=== PATIENT | female | born 1990 | race Asian ===

== ENCOUNTER 2016-07-13 22:33 | Emergency (ER) | payer SELFPAY ==
[~2016-07-13] VITALS: Ht 160 cm; Wt 81.6 kg
[2016-07-13 22:35] VITALS: BP 146/92
--- NOTE | 2016-07-13 22:35 | NUR ---
PT IS 25 Y/O F BIBA W/C/O PT FOUND BY [place] [employer] WALKING ON [address] WITH ALOC. A BUNCH OF XANAX PILLS FOUND IN PT'S POCKET. PT ARRIVED WITH IV ACCESS LEFT AC #20 ESTABLISHED BY EMS. PT DENIES TAKING ANY XANAX. ALERT AND ORIENTED X 2. DENIES ANY MED HX. DENIES N/V/D; SKIN IS PINK/WARM/DRY; AAOX2 WITH EVEN AND STEADY GAIT; LUNGS CLEAR BL; HR EVEN AND REGULAR; PT DENIES ANY FEVER, CP, SOB, OR COUGH AT THIS TIME; PATIENT STATES PAIN OF 0/10 AT THIS TIME; VSS; PATIENT POSITIONED FOR COMFORT; HOB ELEVATED; BEDRAILS UP X2; BED DOWN. ER MD MADE AWARE OF PT STATUS.
--- NOTE | 2016-07-13 22:36 | NUR ---
PT MADELEINE ALS. TAKEN TO BED 7
[2016-07-13] MEDS ORDERED: NACL 0.9% 1,000 ML IV ONE (22:45)
[2016-07-13] MEDS ORDERED: LORazepam 2 MG/ML VIAL IVP ONE (22:45)
--- NOTE | 2016-07-13 22:49 | NUR ---
Dr. Brothers evaluating patient at bedside.
--- NOTE | 2016-07-13 22:55 | NUR ---
IV removed BY PATIENT, catheter intact and site benign. Applied folded 4x4 gauze and tape to stop bleeding.
--- NOTE | 2016-07-14 00:17 | NUR ---
PT APPEARS TO BE SLEEPING IN BED. NO SOB NOTED. NO SIGNS OF DISCOMFORT. WILL CONTINUE TO MONITOR.
[2016-07-14] MEDS ORDERED: FLUMAZENIL 0.5 MG/5 ML VIAL IVP ONE ×2 (01:10→01:40)
--- NOTE | 2016-07-14 01:59 | NUR ---
AFTER 2ND DOSE OF FLUMAZENIL PT WOKE UP, APPEARS TO BE A LITTLE DISORIENTED BUT ABLE TO ANSWER QUESTIONS ACCORDINGLYM SUCH NAME, , DATE
--- NOTE | 2016-07-14 02:00 | NUR ---
Pupils equal and reactive to light bilaterally. No facial droop noted. No smile deficit noted. Speech normal for patient. Patient is alert and oriented to person, place, time and event. Bilateral hand dog hair clipper equal. Bilateral foot push equal.
--- NOTE | 2016-07-14 02:15 | NUR ---
Patient appears to be resting comfortably in bed. Vital Signs within normal limits. Respirations even and unlabored.
[2016-07-14 02:23] VITALS: BP 125/79
== END 2016-07-14 02:22 | disposition home or self-care (01) ==
LOC: EDSEX 22:33 → MED 22:33
DX: F19.10 Other psychoactive substance abuse, uncomplicated (principal)
CPT/HCPCS: 36415; 80053; 80305; 81002; 81025; 85025; 93005; 96374; 96375; 99285; G0480; G0482; J2060; J3490; J7030